=== PATIENT | female | born 1950 | race Two or more races ===

== ENCOUNTER 2018-09-07 15:38 | Emergency (ER) | payer OTHER ==
[~2018-09-07] VITALS: Ht 147.3 cm; Wt 52.5 kg
[2018-09-07 16:26] LABS: BASOPHILS # (AUTO) 0.01 x10^3/uL (0-0.1); BASOPHILS % (AUTO) 0 % (0-1); EOSINOPHILS # (AUTO) 0.06 x10^3/uL (0-0.4); EOSINOPHILS % (AUTO) 2 % (1-7); LYMPHOCYTES # (AUTO) 1.11 x10^3/uL (1-3.4); LYMPHOCYTES % (AUTO) 30 % (22-44); MD NO; MEAN CORPUSCULAR HEMOGLOBIN 29.3 pg (27.0-34.8); MEAN CORPUSCULAR HGB CONC 32.6 g/dL (32.4-35.8); MEAN CORPUSCULAR VOLUME 89.9 fL (80-100); MEAN PLATELET VOLUME 9.5 fL (7.4-10.4); MONOCYTES # (AUTO) 0.25 x10^3/uL (0.2-0.8); MONOCYTES % (AUTO) 7 % (2-9); NEUTROPHILS # (AUTO) 2.26 x10^3/uL (1.8-6.8); NEUTROPHILS % (AUTO) 61 % (42-75); PLATELET COUNT 149 x10^3/uL (130-400); RED BLOOD COUNT 4.37 x10^6/uL (3.82-5.3); RED CELL DISTRIBUTION WIDTH 13.9 % (9.6-15.2)
--- NOTE | 2018-09-07 16:29 | NUR ---
CONTACT WITH PT 67 YR OLD FEMALE HERE WITH C/O "MY HEAD HURTS A LOT AND BOTH MY EYES KEEP CRYING A LOT. JUST STARTED TODAY." DENIES N/V OR SENSITIVITY TO LIGHT. HAS NOT TAKEN ANY MEDICATIONS TODAY. USED NIGHT TIME NANNY [id number]
[2018-09-07 16:34] LABS: ALBUMIN 3.5 g/dL (3.4-5.0); ANION GAP 6 mmol/L (5-15); CALCIUM 9.4 mg/dL (8.5-10.1); CHLORIDE 107 mmol/L (98-107); CREATININE 0.56 mg/dL (0.55-1.02)
[2018-09-07 16:38] LABS: TROPONIN I < 0.015 ng/mL (0.000-0.045)
--- NOTE | 2018-09-07 17:28 | NUR ---
DR MCKOY AT BEDSIDE TO JOSAFAT PT
--- NOTE | 2018-09-07 19:08 | NUR ---
DR MCKOY AT BEDSIDE TO RE-EVAL PT. REPORT TO ABDIEL SARAVIA.
--- NOTE | 2018-09-07 19:11 | NUR ---
REPORT FROM TRINO CARVER MD AT BEDSIDE
[2018-09-07] MEDS ORDERED: SODIUM CHLORIDE 0.9% 1,000ML IVBOLUS ONE (19:30)
[2018-09-07] MEDS ORDERED: SODIUM CHLORIDE FLUSH 10ML SYR IVF ONE (19:30)
--- NOTE | 2018-09-07 20:00 | NUR ---
PIV AND FLUIDS TO BE GIVEN. ARINA SARAVIA TO PLACE PIV. BP HIGH. AWARE
[2018-09-07 20:20] VITALS: BP 188/78
--- NOTE | 2018-09-07 21:00 | NUR ---
FLUIDS FINISHED. BP IMPROVED. MD AWARE.PT TO BE DISCHARGED.
--- NOTE | 2018-09-07 21:24 | NUR ---
PT VERBALIZED UNDERSTANDING OF DISCHARGE INSTRUCTIONS. PT GETTING DRESSED.
== END 2018-09-07 21:28 | disposition home or self-care (01) ==
LOC: EDBD 15:38 → ED 21:20
DX: R73.9 Hyperglycemia, unspecified (principal); I10 Essential (primary) hypertension; G51.0 Bell's palsy
CPT/HCPCS: 36415; 70450; 71045; 80048; 82040; 82962; 83880; 84484; 85025; 93005; 99284; J7030; 96360